=== PATIENT | male | born 1990 | race Caucasian/White ===

== ENCOUNTER 2017-06-08 14:55 | Emergency (ER) | payer OTHER ==
[~2017-06-08] VITALS: Ht 172.7 cm; Wt 84.4 kg
[2017-06-08 16:18] VITALS: BP 145/92
== END 2017-06-08 16:00 | disposition home or self-care (01) ==
LOC: ED 14:55
DX: H61.23 Impacted cerumen, bilateral (principal); Z88.0 Allergy status to penicillin

== ENCOUNTER 2017-06-17 12:00 | Emergency (ER) | payer OTHER ==
[~2017-06-17] VITALS: Ht 172.7 cm; Wt 91.2 kg
[2017-06-17 15:05] VITALS: BP 142/88
== END 2017-06-17 15:05 | disposition home or self-care (01) ==
LOC: ED 12:00
DX: M62.830 Muscle spasm of back (principal)
CPT/HCPCS: J2001

== ENCOUNTER 2018-04-24 12:16 | Emergency (ER) | payer OTHER ==
[~2018-04-24] VITALS: Ht 172.7 cm; Wt 88.9 kg
[2018-04-24 12:37] VITALS: Ht 172.7 cm; Wt 88.9 kg
[2018-04-24 13:35] VITALS: BP 143/80
== END 2018-04-24 13:36 | disposition home or self-care (01) ==
LOC: ED 12:16
DX: J06.9 Acute upper respiratory infection, unspecified (principal); Z88.0 Allergy status to penicillin

== ENCOUNTER 2018-10-31 21:07 | Emergency (ER) | payer OTHER ==
[~2018-10-31] VITALS: Ht 172.7 cm; Wt 86.2 kg
[2018-10-31 21:48] VITALS: Ht 172.7 cm; Wt 86.2 kg
[2018-10-31 22:30] VITALS: BP 125/76
== END 2018-10-31 22:26 | disposition home or self-care (01) ==
LOC: ED 21:07
DX: J02.9 Acute pharyngitis, unspecified (principal); Z88.0 Allergy status to penicillin; Z98.890 Other specified postprocedural states

== ENCOUNTER 2018-11-07 22:32 | Emergency (ER) | payer OTHER ==
[~2018-11-07] VITALS: Ht 172.7 cm; Wt 84.8 kg
[2018-11-07 22:47] VITALS: BP 152/89; Ht 172.7 cm; Wt 84.8 kg
== END 2018-11-08 02:11 | disposition home or self-care (01) ==
LOC: ED 22:32
DX: F41.9 Anxiety disorder, unspecified (principal); R00.2 Palpitations; R20.2 Paresthesia of skin; Z98.890 Other specified postprocedural states
CPT/HCPCS: J2060

== ENCOUNTER 2019-07-16 21:19 | Emergency (ER) | payer MEDICAID ==
[~2019-07-16] VITALS: Ht 172.7 cm; Wt 93.2 kg
[2019-07-16 21:22] VITALS: Ht 172.7 cm; Wt 93.2 kg
[2019-07-16 22:12] VITALS: BP 180/95
== END 2019-07-16 22:12 | disposition home or self-care (01) ==
LOC: ED 21:19
DX: L29.9 Pruritus, unspecified (principal); R21 Rash and other nonspecific skin eruption; Z98.890 Other specified postprocedural states; Z88.0 Allergy status to penicillin